=== PATIENT | female | born 1960 | race Caucasian/White ===

== ENCOUNTER → 2025-04-07 14:40 | Outpatient (BNVA) | payer OTHER, SELFPAY | PROVIDERS: Visit Provider Nurse Practitioner Family | DX: L40.8 Other psoriasis (principal); L82.1 Other seborrheic keratosis; L57.0 Actinic keratosis; D22.5 Melanocytic nevi of trunk; L81.4 Other melanin hyperpigmentation; L57.8 Other skin changes due to chronic exposure to nonionizing radiation; L82.0 Inflamed seborrheic keratosis; L29.89 Other pruritus; Z78.9 Other specified health status; R20.8 Other disturbances of skin sensation; R58 Hemorrhage, not elsewhere classified; L53.8 Other specified erythematous conditions | CPT/HCPCS: 17000; 17110; 99204 ==